=== PATIENT | female | born 1990 | race American Indian/Alaskan Native ===

== ENCOUNTER 2021-10-07 15:38 | Emergency (ER) | payer SELFPAY ==
--- NOTE | 2021-10-07 16:00 | Emergency Department Report ---
<ASHLEY BELLO - Last Filed: 10/07/21 18:47> ED HPI - General Chief complaint: Abdominal Pain Stated complaint: PAIN Time Seen by Provider: 10/07/21 15:46 Source: patient Mode of arrival: Ambulatory Limitations: No Limitations - History of Present Illness Initial comments: 31-year-old female presents to the ER today with complaints of low abdominal pain. Patient states that she is currently but she is not exactly sure how many weeks. The first day of her last menstrual cycle was August 15. She states her first THERMAL TECHNICIAN appointment is scheduled for October 28 at [facility]. She states that she has been having constant low abdominal cramps for the past 2 weeks. She states that she has been having nausea and vomiting and is unable to keep anything down. She denies any abnormal vaginal bleeding. She denies any UTI symptoms and reports no abnormal vaginal discharge. She reports no constipation or diarrhea.. She has not been taking any Tylenol for pain. She is G5, P4 Ab0. Prior abdominal surgeries include C-sections. MD Complaint: abdominal pain -: week(s) (2) - Related Data Previous Rx's Medication Instructions Recorded Last Taken Type Docusate Sodium [Colace] 100 mg PO BID #60 capsule 10/07/21 Unknown Rx Ferrous Sulfate [Ferrous Sulfate 324 mg PO BID #60 tablet. 10/07/21 Unknown Rx 324 MG] Metoclopramide [Reglan] 10 mg PO TID PRN #30 tab 10/07/21 Unknown Rx Allergies Allergy/AdvReac Type Severity Reaction Status Date / Time MUSHROOMS Allergy Hives Uncoded 10/07/21 15:40 ED Review of Systems Comment: All other systems reviewed and negative Constitutional: denies: chills, fever Eyes: denies: eye pain, eye discharge, vision change ENT: denies: ear pain, throat pain, dental pain, hearing loss, congestion Respiratory: denies: cough, orthopnea, shortness of breath, SOB with exertion, SOB at rest, wheezing Cardiovascular: denies: chest pain, palpitations Gastrointestinal: abdominal pain, nausea, vomiting. denies: diarrhea, constipation, hematemesis, hematochezia Genitourinary: denies: urgency, dysuria, frequency, hematuria, discharge, abnormal menses, dyspareunia Musculoskeletal: denies: back pain, joint swelling, arthralgia, myalgia Skin: denies: rash, lesions, change in color, change in hair/nails, pruritus Neurological: denies: headache, weakness, numbness, paresthesias, confusion, abnormal gait Psychiatric: denies: anxiety, depression, auditory hallucinations, visual hallucinations, homicidal thoughts, suicidal thoughts Hematological/Lymphatic: denies: easy bleeding, easy bruising, swollen glands ED Past Medical Hx - Past Medical History Hx Asthma: Yes - Surgical History Past Surgical History?: No - Medications Home Medications: Home Medications Medication Instructions Recorded Confirmed Last Taken Type Docusate Sodium [Colace] 100 mg PO BID #60 capsule 10/07/21 Unknown Rx Ferrous Sulfate [Ferrous Sulfate 324 mg PO BID #60 tablet.dr 10/07/21 Unknown Rx 324 MG] Metoclopramide [Reglan] 10 mg PO TID PRN #30 tab 10/07/21 Unknown Rx ED Physical Exam - General Limitations: No Limitations General appearance: alert, in no apparent distress - Head Head exam: Present: atraumatic, normocephalic, normal inspection - Eye Eye exam: Present: normal appearance, PERRL, EOMI Pupils: Present: normal accommodation - Neck Neck exam: Present: normal inspection, full ROM. Absent: meningismus - Respiratory Respiratory exam: Present: normal lung sounds bilaterally. Absent: respiratory distress, wheezes, rales, rhonchi - Cardiovascular Cardiovascular Exam: Present: regular rate, normal rhythm, normal heart sounds - GI/Abdominal GI/Abdominal exam: Present: soft. Absent: distended, tenderness, guarding, rebound - Neurological Exam Neurological exam: Present: alert, oriented X3, CN II-XII intact, normal gait - Psychiatric Psychiatric exam: Present: normal affect, normal mood - Skin Skin exam: Present: intact ED Medical Decision Making - Lab Data Result diagrams: 10/07/21 16:46 10/07/21 16:46 - Medical Decision Making CBC and CMP reviewed --CBC shows that patient has a low hemoglobin of 6.7 and a hematocrit of 23.0. White count is normal and platelet count is normal. CMP [place] [address]. Urinalysis negative for UTI. Discussed lab results with patient, she does admit to history of anemia but she again denies any bleeding since her last period which was in July. OB ultrasound is pending Discussed case with Dr. Goldsmith, after doing a type and screen and a RhoGam and if OB US results shows no ectopic, recommend giving 1 unit of PRBC patient can be discharged home she stable. If ultrasound does show an ectopic , THERMAL TECHNICIAN will be consulted for admission. 184: The patient's care has been transferred to and accepted by[Liane BUENO]. We discussed: The patient's chief complaints; labs and imaging that have been completed and those that are still pending; procedures that have been completed and those remaining to be done; any treatment provided and the patient's response to treatment; any significant change in condition; input from consultants if any; the treatment plan prior to the transfer of care. The accepting provider will follow up on all pending labs and imaging and make any necessary changes to the current impression and/or treatment plan. The accepting physician/midlevel is now responsible for the patient's care and final disposition. ED Disposition Clinical Impression: Microcytic anemia Abdominal pain during Qualifiers: Trimester: first trimester Qualified Code(s): O26.891 - Other specified related conditions, first trimester Disposition: 01 HOME / SELF CARE / HOMELESS Condition: Stable Instructions: Abdominal Pain During , [id number], and Anemia, Abdominal Pain (ED) Additional Instructions: Please take medication as prescribed. Increase your fluid intake. Please take a vitamin [id number]. Follow-up with your THERMAL TECHNICIAN. You will need to have close THERMAL TECHNICIAN follow-up. Return to emergency room for any new or worsening symptoms. Prescriptions: Docusate Sodium [Colace] 100 mg PO BID #60 capsule Ferrous Sulfate [Ferrous Sulfate 324 MG] 324 mg PO BID #60 tablet.dr Brockoclopramide [Reglan] 10 mg PO TID PRN #30 tab PRN Reason: nausea/vomiting Referrals: your, filling machine tender [Other] - 2-3 Days Print Language: TURKMEN <LIANE ROMERO - Last Filed: 10/07/21 21:38> ED Review of Systems ROS: Stated complaint: PAIN Other details as noted in HPI ED Course Vital Signs 10/07/21 10/07/21 10/07/21 15:45 18:51 18:56 Temperature 99.4 F Pulse Rate 93 H 88 Respiratory 15 14 Rate Blood Pressure 99/55 O2 Sat by Pulse 100 95 98 Oximetry 10/07/21 10/07/21 10/07/21 19:00 19:14 19:23 Temperature Pulse Rate 80 Respiratory 11 L Rate Blood Pressure 101/41 101/41 101/41 O2 Sat by Pulse 96 77 L 76 L Oximetry 10/07/21 10/07/21 10/07/21 19:31 19:46 20:03 Temperature Pulse Rate Respiratory Rate Blood Pressure 101/41 101/41 O2 Sat by Pulse 87 84 85 Oximetry 10/07/21 10/07/21 10/07/21 20:11 20:21 20:31 Temperature Pulse Rate 76 78 79 Respiratory 16 11 L 16 Rate Blood Pressure 101/41 101/41 102/63 O2 Sat by Pulse 100 99 56 L Oximetry 10/07/21 10/07/21 10/07/21 20:41 20:48 20:51 Temperature 98.7 F Pulse Rate 66 76 Respiratory 9 L 14 Rate Blood Pressure 102/63 99/63 O2 Sat by Pulse 100 100 Oximetry 10/07/21 10/07/21 10/07/21 20:55 21:01 21:05 Temperature 98.6 F Pulse Rate 78 76 76 Respiratory 16 12 14 Rate Blood Pressure 99/63 99/63 99/63 O2 Sat by Pulse 100 78 L 70 L Oximetry 10/07/21 21:11 Temperature Pulse Rate 71 Respiratory 13 Rate Blood Pressure 112/46 O2 Sat by Pulse 100 Oximetry ED Medical Decision Making - Lab Data Result diagrams: 10/07/21 16:46 10/07/21 16:46 Lab Results 10/07/21 10/07/21 10/07/21 Range/Units 16:00 16:46 16:46 WBC 4.3 L (4.5-11.0) K/mm3 RBC 3.98 (3.65-5.03) M/mm3 Hgb 6.7 L (10.1-14.3) gm/dl Hct 23.0 L (30.3-42.9) % MCV 58 L (79-97) fl MCH 17 L (28-32) pg MCHC 29 L (30-34) % RDW 18.8 H (13.2-15.2) % Plt Count 301 (140-440) K/mm3 Lymph % (Auto) 39.1 H (13.4-35.0) % [place] % (Auto) 10.3 H (0.0-7.3) % Eos % (Auto) 0.8 (0.0-4.3) % Baso % (Auto) 0.9 (0.0-1.8) % Lymph # (Auto) 1.7 (1.2-5.4) K/mm3 [place] # (Auto) 0.4 (0.0-0.8) K/mm3 Eos # (Auto) 0.0 (0.0-0.4) K/mm3 Baso # (Auto) 0.0 (0.0-0.1) K/mm3 Seg Neutrophils % 48.9 (40.0-70.0) % Seg Neutrophils # 2.1 (1.8-7.7) K/mm3 Sodium 137 (137-145) mmol/L Potassium 3.8 (3.6-5.0) mmol/L Chloride 104.9 (98-107) mmol/L Carbon Dioxide 21 L (22-30) mmol/L Anion Gap 15 mmol/L BUN 11 (7-17) mg/dL Creatinine 0.6 (0.6-1.2) mg/dL Estimated GFR > 60 ml/min BUN/Creatinine Ratio 18 % Glucose 97 (65-100) mg/dL Calcium 9.2 (8.4-10.2) mg/dL Total Bilirubin 0.20 (0.1-1.2) mg/dL AST 12 (5-40) units/L ALT < 5 L (7-56) units/L Alkaline Phosphatase 46 (35-129) units/L Total Protein 7.3 (6.3-8.2) g/dL Albumin 4.3 (3.9-5) g/dL Albumin/Globulin Ratio 1.4 % Lipase 43 (13-60) units/L HCG, Quant (0-4) mIU/mL Urine Color Yellow (Yellow) Urine Turbidity Clear (Clear) Urine pH 6.0 (5.0-7.0) Ur Specific [place] 1.016 (1.003-1.030) Urine Protein <15 mg/dl (Negative) mg/dL Urine Glucose (UA) Neg (Negative) mg/dL Urine Ketones Neg (Negative) mg/dL Urine Blood Sm (Negative) Urine Nitrite Neg (Negative) Urine Bilirubin Neg (Negative) Urine Urobilinogen < 2.0 (<2.0) mg/dL Ur Leukocyte Esterase Neg (Negative) Urine WBC (Auto) < 1.0 (0.0-6.0) /HPF Urine RBC (Auto) 2.0 (0.0-6.0) /HPF U Epithel Cells (Auto) 8.0 (0-13.0) /HPF Urine Mucus Few /HPF Blood Type Antibody Screen Crossmatch Ord Rhogam Gestat Weeks 10/07/21 10/07/21 Range/Units 16:46 18:36 WBC (4.5-11.0) K/mm3 RBC (3.65-5.03) M/mm3 Hgb (10.1-14.3) gm/dl Hct (30.3-42.9) % MCV (79-97) fl MCH (28-32) pg MCHC (30-34) % RDW (13.2-15.2) % Plt Count (140-440) K/mm3 Lymph % (Auto) (13.4-35.0) % [place] % (Auto) (0.0-7.3) % Eos % (Auto) (0.0-4.3) % Baso % (Auto) (0.0-1.8) % Lymph # (Auto) (1.2-5.4) K/mm3 [place] # (Auto) (0.0-0.8) K/mm3 Eos # (Auto) (0.0-0.4) K/mm3 Baso # (Auto) (0.0-0.1) K/mm3 Seg Neutrophils % (40.0-70.0) % Seg Neutrophils # (1.8-7.7) K/mm3 Sodium (137-145) mmol/L Potassium (3.6-5.0) mmol/L Chloride (98-107) mmol/L Carbon Dioxide (22-30) mmol/L Anion Gap mmol/L BUN (7-17) mg/dL Creatinine (0.6-1.2) mg/dL Estimated GFR ml/min BUN/Creatinine Ratio % Glucose (65-100) mg/dL Calcium (8.4-10.2) mg/dL Total Bilirubin (0.1-1.2) mg/dL AST (5-40) units/L ALT (7-56) units/L Alkaline Phosphatase (35-129) units/L Total Protein (6.3-8.2) g/dL Albumin (3.9-5) g/dL Albumin/Globulin Ratio % Lipase (13-60) units/L HCG, Quant 39940 H (0-4) mIU/mL Urine Color (Yellow) Urine Turbidity (Clear) Urine pH (5.0-7.0) Ur Specific [place] (1.003-1.030) Urine Protein (Negative) mg/dL Urine Glucose (UA) (Negative) mg/dL Urine Ketones (Negative) mg/dL Urine Blood (Negative) Urine Nitrite (Negative) Urine Bilirubin (Negative) Urine Urobilinogen (<2.0) mg/dL Ur Leukocyte Esterase (Negative) Urine WBC (Auto) (0.0-6.0) /HPF Urine RBC (Auto) (0.0-6.0) /HPF U Epithel Cells (Auto) (0-13.0) /HPF Urine Mucus /HPF Blood Type A POSITIVE Antibody Screen Negative Crossmatch See Detail Ord Rhogam Gestat Weeks Cancelled - Radiology Data Radiology results: report reviewed Ordering Physician: ASHLEY BELLO Date of Service: 10/07/21 Procedure(s): US OB transvaginal Accession Number(s): [id number] cc: ASHLEY BELLO ULTRASOUND OBSTETRIC INDICATION: lower abd pain/Quant HCG 03675. TECHNIQUE: Transvaginal. COMPARISON: None available. FINDINGS: GESTATIONAL SAC: Well-defined oval shape and intrauterine in location. Mean sac diameter is 1.57 cm, consistent with an estimated age of 6 weeks, 3 days. YOLK SAC: No significant abnormality. EMBRYO/FETUS: A pole is not clearly seen. A heart rate of 159 bpm is detected. ADNEXA: No significant abnormality of the right ovary. The left ovary is not seen. FREE FLUID: None. ADDITIONAL FINDINGS: None. IMPRESSION: Single intrauterine as above with identification of cardiac activity without clear visualization of a pole. Close clinical and imaging follow-up is recommend ed. Signer Name: Jason Garcia MD Signed: 10/07/2021 8:13 PM Workstation Name: [id number] Transcribed By: VELMA Dictated By: Jason Garcia MD Electronically Authenticated By: Jason Garcia MD Signed Date/Time: 10/07/212012 DD/ 10 TD/TT: - Medical Decision Making Patient signed out by Ashley Bello PA-C pending ultrasound Ultrasound shows Single intrauterine as above with identification of cardiac activity without clear visualization of a pole. Close clinical and imaging follow-up is recommended. Initial vitals with hypotension, improved upon repeat Patient is no longer having any vomiting She states that she has been transfused RBCs multiple times in the past and the last time was in June She states that she is supposed to be taking iron supplements but has not been taking them Patient transfused 1 unit while in the emergency department Advised patient Please take medication as prescribed. Increase your fluid intake. Please take a vitamin [id number]. Follow-up with your THERMAL TECHNICIAN. You will need to have close THERMAL TECHNICIAN follow-up. Return to emergency room for any new or worsening symptoms. Critical care attestation.: If time is entered above; I have spent that time in minutes in the direct care of this critically ill patient, excluding procedure time. ED Disposition Is pt being admited?: No Does the pt Need Aspirin: No Time of Disposition: 20:28
[2021-10-07 16:18] LABS: Bilirubin,Urine NEG (Negative); Blood,Urine SM (Negative); Color,Urine Yellow (Yellow); Mucus,Urine FEW /HPF; Protein,Urine <15 mg/dL mg/dL (Negative); Urobilinogen,Urine < 2.0 mg/dL (<2.0); WBC,Urine < 1.0 /HPF (0.0-6.0)
[2021-10-07] MEDS: ACETAMINOPHEN 325 MG TAB PO ONE (16:23)
[2021-10-07] MEDS: LACTATED RINGERS 1,000 ML IV ONE (16:23)
[2021-10-07] MEDS: ONDANSETRON 4 MG/2 ML INJ IV ONE (16:23)
[2021-10-07 17:06] LABS: Basophils % (Auto) 0.9 % (0.0-1.8); Eosinophils % (Auto) 0.8 % (0.0-4.3); Hemoglobin 6.7 gm/dl (10.1-14.3); Lymphocytes # (Auto) 1.7 K/mm3 (1.2-5.4); Lymphocytes % (Auto) 39.1 % (13.4-35.0); Mean Corpuscular HGB Conc 29 % (30-34); Monocytes # (Auto) 0.4 K/mm3 (0.0-0.8); Monocytes % (Auto) 10.3 % (0.0-7.3); Platelet Count 301 K/mm3 (140-440); Red Blood Count 3.98 M/mm3 (3.65-5.03); Red Cell Distribution Width 18.8 % (13.2-15.2)
[2021-10-07 17:13] LABS: Mean Corpuscular Volume 58 fl (79-97)
[2021-10-07 17:22] LABS: Albumin 4.3 g/dL (3.9-5); Blood Urea Nitrogen 11 mg/dL (7-17); Calcium 9.2 mg/dL (8.4-10.2); Hemolysis Index 1
[2021-10-07 17:31] LABS: Alanine Aminotransferase < 5 units/L (7-56); BUN/Creatinine Ratio 18
[2021-10-07] MEDS: HYDROcodone/ACETAMINOPHEN 5-325 MG TAB PO ONE (17:36)
[2021-10-07] MEDS ORDERED: SODIUM CHLORIDE 0.9% 500 ML 500 ML IV ONE (19:34)
--- NOTE | 2021-10-07 20:17 | Ultrasound Report ---
ULTRASOUND OBSTETRIC INDICATION: lower abd pain/Quant HCG 48940. TECHNIQUE: Transvaginal. COMPARISON: None available. FINDINGS: GESTATIONAL SAC: Well-defined oval shape and intrauterine in location. Mean sac diameter is 1.57 cm, consistent with an estimated age of 6 weeks, 3 days. YOLK SAC: No significant abnormality. EMBRYO/FETUS: A pole is not clearly seen. A heart rate of 159 bpm is detected. ADNEXA: No significant abnormality of the right ovary. The left ovary is not seen. FREE FLUID: None. ADDITIONAL FINDINGS: None. IMPRESSION: Single intrauterine as above with identification of cardiac activity without clear vi sualization of a pole. Close clinical and imaging follow-up is recommended. Signer Name: Jason Garcia MD Signed: 10/07/2021 8:13 PM Workstation Name: [id number]
[2021-10-07 22:14] VITALS: BP 103/61
== END 2021-10-07 22:22 | disposition home or self-care (01) ==
LOC: ED 15:38
DX: O99.011 Anemia complicating pregnancy, first trimester (principal); O26.891 Other specified pregnancy related conditions, first trimester; R10.30 Lower abdominal pain, unspecified; Z3A.01 Less than 8 weeks gestation of pregnancy
CPT/HCPCS: 36415; 36430; 76817; 80053; 81001; 83690; 84702; 85025; 86850; 86900; 86901; 86920; 96361; 96374; 99284; J2405; J7040; J7120; P9016; J3490

== ENCOUNTER 2022-01-21 08:37 | Emergency (ER) | payer MEDICAID ==
[2022-01-21 08:48] VITALS: BP 115/65
[2022-01-21] MEDS ORDERED: ONDANSETRON 4 MG ODT TAB PO ONE (09:08)
[2022-01-21] MEDS ORDERED: BUTALB/ACETAMINOPHEN/CAFFEINE TAB PO ONE (09:09)
--- NOTE | 2022-01-21 09:21 | Emergency Department Report ---
ED Headache HPI - General Chief Complaint: Headache Stated Complaint: HEADACHE X4 DAYS AND BLURRIED VISION Time Seen by Provider: 01/21/22 08:50 - History of Present Illness Initial Comments: 31-year-old black female G5, P4 who is about 22 weeks gestation presents to the emergency department for evaluation of 2-week history of intermittent headache. She states that she started having headaches 2 weeks ago and since then she has had a headache almost daily but this headache she has now has been persistent for the past 2 days with photophobia, dizziness, and blurred vision. She states that she has taken Tylenol for the headache without any improvement. She denies head injury. Timing/Duration: episodic, other (Intermittent for 2 weeks and persistent for the past 2 days) Quality: severe Head Injury Location: global Recent Head Trauma: frequent headaches Associated Symptoms: nausea/vomiting, vision changes. denies: confusion, fatigue, facial pain, fever/chills, flushing, loss of consciousness, nasal congestion, nasal drainage, numbness in legs/feet, seizures, sinus infection, stiff neck, weakness Allergies/Adverse Reactions: Allergies MUSHROOMS Allergy (Uncoded 10/07/21 15:40) Hives Home Medications: Ambulatory Orders Docusate Sodium [Colace] 100 mg PO BID #60 capsule 10/07/21 Ferrous Sulfate [Ferrous Sulfate 324 MG] 324 mg PO BID #60 tablet. 10/07/21 Metoclopramide [Reglan] 10 mg PO TID PRN #30 tab 10/07/21 ED Review of Systems ROS: Stated complaint: HEADACHE X4 DAYS AND BLURRIED VISION Other details as noted in HPI Comment: All other systems reviewed and negative Constitutional: denies: fever Eyes: denies: eye pain ENT: denies: ear pain Respiratory: denies: cough, shortness of breath, SOB with exertion Cardiovascular: denies: chest pain, palpitations, dyspnea on exertion, orthopnea, edema, syncope Endocrine: no symptoms reported Gastrointestinal: denies: abdominal pain, nausea, vomiting, diarrhea, hematemesis, melena, hematochezia Genitourinary: other. denies: urgency, frequency, hematuria, discharge Musculoskeletal: denies: back pain Skin: denies: rash, lesions Neurological: headache. denies: weakness, numbness, paresthesias, confusion, abnormal gait, vertigo Psychiatric: denies: anxiety Hematological/Lymphatic: denies: easy bleeding, easy bruising ED Past Medical Hx - Past Medical History Hx Asthma: Yes - Social History Smoking Status: Never Smoker - Medications Home Medications: Home Medications Medication Instructions Recorded Confirmed Last Taken Type Docusate Sodium [Colace] 100 mg PO BID #60 capsule 10/07/21 Unknown Rx Ferrous Sulfate [Ferrous Sulfate 324 mg PO BID #60 tablet.dr 10/07/21 Unknown Rx 324 MG] Metoclopramide [Reglan] 10 mg PO TID PRN #30 tab 10/07/21 Unknown Rx ED Physical Exam - General Limitations: No Limitations General appearance: alert, in no apparent distress - Head Head exam: Present: atraumatic, normocephalic - Eye Eye exam: Present: normal appearance. Absent: conjunctival injection - Neck Neck exam: Present: normal inspection. Absent: tenderness, lymphadenopathy - Respiratory Respiratory exam: Present: normal lung sounds bilaterally. Absent: respiratory distress, wheezes, rales, rhonchi, chest wall tenderness, accessory muscle use - Cardiovascular Cardiovascular Exam: Present: regular rate, normal heart sounds - GI/Abdominal GI/Abdominal exam: Present: soft. Absent: tenderness - Speculum exam: Absent: vaginal bleeding - Extremities Exam Extremities exam: Present: normal inspection. Absent: full ROM - Back Exam Back exam: Present: normal inspection. Absent: tenderness, CVA tenderness (R), CVA tenderness (L) - Neurological Exam Neurological exam: Present: alert, oriented X3 - Psychiatric Psychiatric exam: Present: normal affect, normal mood - Skin Skin exam: Present: warm, dry, intact, normal color ED Course Vital Signs 01/21/22 08:45 Temperature 98.6 F Pulse Rate 83 Respiratory 16 Rate Blood Pressure 115/65 O2 Sat by Pulse 100 Oximetry ED Medical Decision Making - Medical Decision Making 31-year-old black female G5, P4 who is about 22 weeks gestation presents to the emergency department for evaluation of 2-week history of intermittent headache. She states that she started having headaches 2 weeks ago and since then she has had a headache almost daily but this headache she has now has been persistent for the past 2 days with photophobia, dizziness, and blurred vision. She states that she has taken Tylenol for the headache without any improvement. She denies head injury. Patient was given medication, but she was unable to be located for reassessment. Looked in waiting room, reassessment area, and registration area but could not locate patient. Critical care attestation.: If time is entered above; I have spent that time in minutes in the direct care of this critically ill patient, excluding procedure time. ED Disposition Clinical Impression: Headache Qualifiers: Headache type: unspecified Headache chronicity pattern: unspecified pattern Intractability: not intractable Qualified Code(s): R51.9 - Headache, unspecified Disposition: 07 LEFT AWOL/ELOPED Is pt being admited?: No Condition: Stable
== END 2022-01-21 08:50 | disposition left against medical advice (07) ==
LOC: ED 08:37
DX: O26.892 Other specified pregnancy related conditions, second trimester (principal); R51.9 Headache, unspecified; H53.8 Other visual disturbances; J45.909 Unspecified asthma, uncomplicated; Z3A.22 22 weeks gestation of pregnancy; Z91.018 Allergy to other foods; Z79.899 Other long term (current) drug therapy
CPT/HCPCS: 99281; J3490; Q0162